=== PATIENT | female | born 1960 | race Caucasian/White ===

== ENCOUNTER → 2016-11-04 | Outpatient (CLI) | payer OTHER | LOC: BRMIMAGING 14:29 | PROVIDERS: ATTEND Physician Assistant Medical | DX: Z12.31 Encounter for screening mammogram for malignant neoplasm of breast (principal) | CPT/HCPCS: G0202 ==

== ENCOUNTER → 2017-11-25 | Outpatient (CLI) | payer OTHER | LOC: BRMIMAGING 12:50 | PROVIDERS: ATTEND Physician Assistant Medical | DX: Z12.31 Encounter for screening mammogram for malignant neoplasm of breast (principal) ==

== ENCOUNTER → 2019-02-07 | Outpatient (CLI) | payer OTHER | LOC: BRMIMAGING 15:00 ==